=== PATIENT | male | born 2000 | race Asian ===

== ENCOUNTER 2023-12-22 11:15 | Emergency (ER) | payer OTHER ==
[2023-12-22 11:21] VITALS: BP 123/67; PULSE 78; RESP 18; TEMP 98.3; BMI 27.8
[2023-12-22 13:21] LABS: BASO % 0.7 % (0-2.0); EOS % 1.2 % (0-4.5); HEMATOCRIT 45.9 % (35.4-49); HEMOGLOBIN 16.1 GM/dL (11.7-16.9); LYMPH % 30.5 % (8-40); MCH 30.5 pg (25.7-33.7); MEAN CELL VOLUME 87.1 fl (80-96); MEAN PLT VOLUME 10.1 fl (7.5-11.1); NEUT % 61.6 % (42.8-82.8); PLATELET COUNT 215 10^3/uL (134-434); RBC 5.26 M/mm3 (4.00-5.60); RDW 12.6 % (11.9-15.9); WHITE BLOOD COUNT 6.3 K/mm3 (4.0-10.0)
[2023-12-22 13:46] LABS: POTASSIUM 4.7 mmol/L (3.5-5.1)
[2023-12-22 13:48] LABS: CALCIUM 9.1 mg/dL (8.5-10.1)
[2023-12-22 13:49] LABS: ALBUMIN 4.5 g/dl (3.4-5.0)
[2023-12-22 13:52] LABS: CREATININE 0.9 mg/dL (0.55-1.3)
[2023-12-22 13:54] LABS: BILIRUBIN,TOTAL 1.6 mg/dL (0.2-1); TOT PROT 8.1 g/dl (6.4-8.2)
[2023-12-22] MEDS ORDERED: KETOROLAC TROMETHAMINE 30 MG/1 ML VIAL ONE (14:26)
[2023-12-22] MEDS: SODIUM CHLORIDE 0.9% 500 ML INFUS.BAG IV ONE (14:30)
[2023-12-22] MEDS: KETOROLAC TROMETHAMINE 30 MG/1 ML VIAL IVPUSH ONE (14:30)
== END 2023-12-22 18:56 | disposition home or self-care (01) ==
LOC: JER 11:15
PROC: 3E0333Z Introduction of Anti-inflammatory into Peripheral Vein, Percutaneous Approach (ICD-10-PCS; principal; 2023-12-22)
DX: R07.89 Other chest pain (principal)
CPT/HCPCS: 36415; 71046-TC-FY; 76705-TC; 80053; 84484; 85025; 93005; 93010; 99285-25